=== PATIENT | female | born 1985 | race Two or more races ===

== ENCOUNTER 2018-09-04 01:45 | Observation (INO) | payer OTHER ==
[2015-11-26 14:45] VITALS: Ht 167.6 cm; Wt 91.6 kg
[2018-09-04] VITALS (11 sets, daily range): BP systolic 104–117; BP diastolic 52–93
[~2018-09-04] VITALS: Ht 167.6 cm; Wt 91.6 kg
[~2018-09-04 01:45] MED LIST: ACE3 PO; AZIT-1 PO; BUTA1CAP4 PO; IBU800 PO; IBUP800T37 PO; KET10 PO; LOR5/325 PO; MET2 PO; METH0.2T PO; MISO200T59 PO; NONE CURRENTLY; OMEP-137 PO; OMEP-218 PO; ONDA4TAB97 PO; OTC COUGH MED; OXYC-865 PO; PANT40TA65 PO; PREN-127 PO; SCOP1PAT16 TD
[2018-09-04] MEDS ORDERED: fentaNYL CITR 250 MCG/5 ML AMP ONE (08:16)
[2018-09-04] MEDS ORDERED: PROPOFOL EMUL(*) 10MG/ML 20 ML 20 ML ONE (08:17)
[2018-09-04] MEDS ORDERED: LIDOCAINE 2% IV 100 MG/5ML SYR ONE (08:17)
[2018-09-04 09:57] LABS: PLATELET COUNT, AUTOMATED 206 K/uL (150-450)
[2018-09-04] MEDS ORDERED: cefOXitin/DEX(*) 2GM/50ML PREM 50 ML IVPB ONE (10:25)
[2018-09-04] MEDS ORDERED: MIDAZOLAM 2 MG/2 ML VIAL IVP PRN (10:25)
[2018-09-04] MEDS ORDERED: LIDOCAINE/SOD BICARB 8.4% SYR ID ONE (10:25)
[2018-09-04] MEDS ORDERED: FAMOTIDINE 20 MG TAB PO ONE (10:25)
[2018-09-04] MEDS ORDERED: NORMOSOL R SOLN(*) 1000 ML BAG 1,000 ML IV PRN (10:25)
[2018-09-04] MEDS ORDERED: MANNITOL* (20%)100 GM/500ML BG 500 ML IVPB ONE (13:26)
[2018-09-04] MEDS ORDERED: ROPIVACAINE 0.2% 20 ML VIAL ONE (13:26)
[2018-09-04] MEDS ORDERED: ROCURONIUM BROM 10 MG/ML 10 ML ONE (15:06)
[2018-09-04] MEDS ORDERED: DEXAMETHASONE SOD 4 MG/ML VIAL ONE (15:08)
[2018-09-04] MEDS ORDERED: ONDANSETRON 4 MG/2 ML VIAL ONE (15:15)
[2018-09-04] MEDS ORDERED: KETOROLAC 30 MG/ML VIAL ONE (15:15)
[2018-09-04] MEDS ORDERED: KETAMINE HCL 200 MG/20 ML MDV ONE ×2 (15:23→16:20)
[2018-09-04] MEDS ORDERED: DOCU-225 PO (15:25)
[2018-09-04] MEDS ORDERED: OXYC-865 PO (15:25)
[2018-09-04] MEDS ORDERED: fentaNYL CITR 100 MCG/2 ML AMP ONE ×3 (16:21→18:27)
[2018-09-04] MEDS ORDERED: SUGAMMADEX SOD 200 MG/2 ML SDV ONE (17:15)
[2018-09-04] MEDS ORDERED: DLR(*) 1000 ML BAG 1,000 ML IV PRN (17:39)
[2018-09-04] MEDS ORDERED: ONDANSETRON 4 MG/2 ML VIAL IV PRN (17:40)
[2018-09-04] MEDS ORDERED: ACETAMINOPHEN 325 MG TAB PO PRN (17:40)
[2018-09-04] MEDS ORDERED: SIMETHICONE 80 MG CHEW CHEW PRN (17:40)
[2018-09-04] MEDS ORDERED: PROMETHAZINE 25 MG/ML 1 ML AMP IVP PRN (17:40)
[2018-09-04] MEDS ORDERED: HYDROmorphone HCL 2 MG TAB PO PRN (17:40)
[2018-09-04] MEDS ORDERED: PROMETHAZINE 25 MG/ML 1 ML AMP ONE (17:41)
--- NOTE | 2018-09-04 17:43 | Post Operative Note ---
Operative Note - INSTRUMENT ADJUSTER Operative Day Date: Sep 04, 2018 Time: 17:34 Physicians Surgeon: Aurora Garment Turner: Shabnam Arrington Anesthesia: GETA Diagnosis Pre-Op Diagnosis: Dyspareunia Pelvic pain Irregular menstruation Post-Op Diagnosis: same Procedure Findings: Procedure(s): JOYCE BS MMC Cysto Specimen Removed:(Maybe N/A): uterus, tubes Complications: none Fluids Fluids: 1100 ml Estimated Blood Loss: 100 ml Dictated Date OP Note Dictated: Sep 04, 2018 Time OP Note Dictated: 17:35 Copies to: STANFORD BANKS MD ; STANFORD BANKS MD Sep 04, 2018 17:43
--- NOTE | 2018-09-04 20:04 | OPERATIVE REPORT 1 ---
EVENT DATE: September 04, 2018 SURGEON: Marco Antonio Simon MD ANESTHESIOLOGIST: Tomasz Snow MD ANESTHESIA: General endotracheal. PREOPERATIVE DIAGNOSES 1. Dyspareunia. 2. Pelvic pain. 3. Irregular menstruation. POSTOPERATIVE DIAGNOSES 1. Dyspareunia. 2. Pelvic pain. 3. Irregular menstruation. PROCEDURES PERFORMED 1. Robotic-assisted total laparoscopic hysterectomy. 2. Bilateral salpingectomy. 3. Modified Najera culdoplasty. 4. Diagnostic cystoscopy. ESTIMATED BLOOD LOSS 100 mL FLUIDS Crystalloid 1100 mL IV. FINDINGS Normal-appearing right upper quadrant, liver, and gallbladder. Boggy-appearing uterus. Normal-appearing ovaries bilaterally. Prior tubal ligation. PROCEDURE IN DETAIL Patient was brought to the operating room with a working IV and placed in the dorsal supine position. She was placed under general endotracheal anesthesia and moved to the dorsal lithotomy position. She was prepped and draped in the usual sterile fashion. A weighted speculum was placed in the vagina, and the cervix was grasped on the anterior lip with a single-toothed tenaculum. It was carefully sounded to a depth of 8 cm. A large VCare uterine manipulator was selected, assembled, passed through the cervix, and sutured into the cervix. Bulb inflated and secured, and the other instruments were then removed. The pneumo cup was approximated against the VCare cup and secured in place. A Plascencia catheter was placed to dependent drainage. Legs were brought back to the supine position, and gloves were changed. 12 cm were marked above the target anatomy. An 8 mm incision was made after infiltrating with 0.2% Naropin. The anterior abdominal wall was elevated while a Veress needle was passed through this incision into the abdomen. A pneumoperitoneum was created to an intra-abdominal pressure of 20 mmHg. The Veress needle was then removed, and an 8 mm robotic trocar was placed under direct visualization with the scope. Once entry had been gained, additional ports were placed as follows: 8 cm left lateral to the umbilical incision, robotic port placed under direct visualization. 8 cm left lateral to this one, an assistant unit forester port was placed, an 8 mm port under direct visualization. The same procedure was followed on the contralateral side, placing two additional ports at 8 cm spacing, all with direct visualization without incident. Patient was moved to the Trendelenburg position. The pelvis was inspected with the above findings noted. The robot was brought overlying the patient, and the umbilical port was docked. The scope was placed, and the targeting procedure was performed and completed. The instruments were then attached to the robot and brought into the patient's pelvis under direct visualization. I then scrubbed out of the bedside and presented to the console for the remainder of the procedure. The hysterectomy proceeded as follows: The right fallopian tube was grasped and elevated while the vessel sealer was used to remove the tube away from its mesosalpinx connection up to the utero-ovarian ligament. This was then cauterized and transected with the vessel sealer. The round ligament was cauterized and transected as well, entering the broad ligament, which was into anterior and posterior leaflets. The anterior leaflet was dissected anteriorly, and the bladder was pushed back. This exposed the VCare cup indenting up into the vaginal tissue. Anterior colpotomy was performed at this point to locate the cup, completing the dissection of the broad ligament posteriorly. This skeletonized the uterine vasculature, which was transected using the vessel sealer on a perpendicular angle, followed by parallel bites along the lateral uterus and cervix overlying the VCare cup. Attention was then turned to the contralateral side, in likewise fashion dissecting the fallopian tube away from its mesosalpinx connection up to the utero-ovarian ligament, which was in a likewise fashion cauterized and transected. The round ligament was cauterized and transected with the vessel sealer, and the broad ligament was entered and into anterior and posterior leaflets. Anteriorly, the dissection was completed. Posteriorly, the dissection proceeded down to the uterosacral ligament. The uterine vessels were then cauterized in a perpendicular fashion, followed by parallel bites along the lateral uterus down to and overlying the cervix and the VCare cup. At this point, colpotomy incision was further extended circumferentially around the cervix, through the uterosacral ligaments on both sides, and reaching and completing on the contralateral side. The uterus was then removed through the vagina. A few spots were cauterized with bipolar cautery for hemostasis, and instruments were then changed. We proceeded to suture by suture ligating the right vaginal angle to the uterosacral ligament with an 0 Vicryl in a [id number] stitch. The same procedure was followed on the contralateral side. The remaining vaginal cuff was closed with a 2-0 V-Loc suture in a running nonlocking fashion, and the tip of the suture was buried within the tissue upon completion. The pelvis and abdomen were copiously irrigated with saline and suctioned dry. No visible bleeders. No visible complications were noted. Therefore, the pneumoperitoneum was suctioned out. All instruments were removed from the abdomen. Skin incisions were repaired with a 4-0 Monocryl simple subdermal. Diagnostic cystoscopy was performed and revealed no bladder injuries. Both ureteral orifices were observed to have a strong urine jet with no visible complications. The Plascencia catheter was left out. The vaginal cuff was inspected from the vagina side and found to be intact and without visible complication or bleeding. The procedure was then terminated. All instruments were accounted for. Sponges, laps, and needles were accounted for. She tolerated the procedure well. She was awakened from general anesthesia in stable condition and taken to Recovery. CHERYL
[2018-09-04] MEDS: DLR(*) 1000 ML BAG 1,000 ML IV PRN (20:26)
[2018-09-04] MEDS ORDERED: BELLADONNA ALK/OPIUM 60MG SUPP PR ONE (20:30)
[2018-09-04] MEDS: DOCUSATE CALCIUM 240 MG CAP PO SCH ×2 (21:00→21:32)
[2018-09-04] MEDS ORDERED: ZOLPIDEM TARTRATE 10 MG TAB PO PRN (21:00)
[2018-09-04] MEDS: KETOROLAC 30 MG/ML VIAL IVP SCH (21:32)
[2018-09-04] MEDS: FAMOTIDINE 20 MG TAB PO SCH (21:32)
[2018-09-05] VITALS: BP 105/53
[2018-09-05 01:00] VITALS: BP 96/51
[2018-09-05 03:14] VITALS: BP 98/54
[2018-09-05] MEDS: KETOROLAC 30 MG/ML VIAL IVP SCH ×2 (03:20→10:02)
[2018-09-05] MEDS: DLR(*) 1000 ML BAG 1,000 ML IV PRN (03:20)
[2018-09-05 06:15] LABS: PLATELET COUNT, AUTOMATED 196 K/uL (150-450)
[2018-09-05 07:15] VITALS: BP 103/55
--- NOTE | 2018-09-05 07:57 | OB/GYN Progress Note ---
OB Subjective Progress Notes Subjective Feeling better this AM. Pain much better and getting appetite back. Has been ambulating to BR frequently without problem. Started with bladder spasms but better now. GI: NEG Nausea : Voiding Well Pain: Mild OB Objective Physical Exam Vital Signs Date Time Temp Pulse Resp B/P (MAP) Pulse Ox O2 Delivery O2 Flow Rate FiO2 09/05/18 07:15 97.6 56 16 103/55 (71) 89 Room Air 09/05/18 01:00 2.0 Intake and Output 09/05/18 07:00 Intake Total 2561 ml Output Total 700 ml Balance 1861 ml Intake IV Total 2561 ml Output Urine Total 700 ml # Voids 4 General Appearance: Alert/Awake/No Acute Distress Neurological: No Gross deficits Cardiovascular: Normal Rhythm & Peripheral Pulses, Regular Rate and Rhythm Respiratory: No Respiratory Distress, Clear to Auscultation Abdomen: Soft, Non-Tender, Non-Distended, Bowel Sounds Present Incision: Clean, Dry, Intact, Dermabond Integumentary: Skin Intact without Lesions or Rash Psychological: Alert & Oriented X3, Appropriate Mood & Affect Result Diagram: 09/05/18 0602 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 Continue to ambulate and when feeling up to it, may discharge later today. Reviewed discharge instruction and precautions. (2) Status post robot-assisted surgical procedure (3) History of robot-assisted laparoscopic hysterectomy STANFORD BANKS MD Sep 05, 2018 07:57
[2018-09-05] MEDS ORDERED: SULF1TAB24 PO (07:59)
--- NOTE | 2018-09-05 07:59 | Short(Outpt) Discharge Summary ---
Discharge Summary Reason for Hosp/Final Diag: (1) Postoperative state Hospital Course & Plan: Routine postoperative care today. Continue to ambulate and when feeling up to it, may discharge later today. Reviewed discharge instruction and precautions. (2) Status post robot-assisted surgical procedure (3) History of robot-assisted laparoscopic hysterectomy Departure Discharge to: Home, Self Care Discharge Instructions Home Meds Active Scripts Oxycodone Hcl/Acetaminophen (PERCOCET 5-325 MG TABLET) 1 Each Tablet, 1 EACH PO Q4-6H PRN for PAIN, #20 TAB 0 Refills TAKE 1 TABLET NEEDED FOR PAIN - NO CLOSER THAN EVERY 4-6 HOURS. Prov:JEOVANNY YEUNG PA 09/04/18 Reported Medications Omeprazole Magnesium (PRILOSEC OTC) 20 Mg Tablet.dr, 0.5 TAB PO QDAY PRN for INDIGESTION, TAB 08/26/18 Discontinued Reported Medications Scopolamine (Scopolamine) 1 Mg/3 Day Patch.td.3, 1.5 MG TD ONCE 09/03/18 Follow up Referrals: [facility] [employer] - In Two Weeks @ [facility] with STANFORD BANKS MD Diet: Regular Activity: As Tolerated Copies to: STANFORD BANKS MD ; STANFORD BANKS MD Sep 05, 2018 07:59
[2018-09-05] MEDS: DOCUSATE CALCIUM 240 MG CAP PO SCH (09:08)
[2018-09-05] MEDS: FAMOTIDINE 20 MG TAB PO SCH (09:08)
[2018-09-05] MEDS ORDERED: IBUP800T37 PO ×2 (09:46→09:49)
[2018-09-05 11:30] VITALS: BP 99/48
[2018-09-05] MEDS ORDERED: IBUPROFEN 800 MG TAB PO PRN (16:00)
[2018-09-05] MEDS ORDERED: INFLUENZA VIRUS VAC 0.5ML SYR IM ONLY ONE (17:40)
== END 2018-09-05 07:58 | disposition home or self-care (01) ==
LOC: OR 01:45 → PED 19:15
PROVIDERS: ADMIT Obstetrics & Gynecology; ATTEND Obstetrics & Gynecology
DX: N92.5 Other specified irregular menstruation (principal); N94.10 Unspecified dyspareunia; R10.2 Pelvic and perineal pain
CPT/HCPCS: 36415; 58263; 84703; 85014; 85018; 85025; 88307; G0378; J0694; J1100; J1885; J2001; J2405; J2550; J2704; J2795; J3010; J3490; S2900

== ENCOUNTER 2018-11-12 00:55 | Emergency (ER) | payer OTHER ==
[2015-11-26 14:45] VITALS: BMI 40.2
[~2018-11-12 00:55] MED LIST changes: +DOCU-225 PO; +SULF1TAB24 PO
--- NOTE | 2018-11-12 01:09 | ER Report ---
History and Physical Time Seen By MD: 01:05 Hx. of Stated Complaint: chest pain from left chest to her shoulder, started 30min ago HPI/ROS CHIEF COMPLAINT: Left chest pain HISTORY OF PRESENT ILLNESS: 33-year-old female presents a ER complaining of left upper chest pain, sharp in nature, sudden onset roughly 2 h ours prior to arrival. Patient's worried about cardiac symptoms. She notes no radiation to her left arm. She does note some pain in her left shoulder. She notes change with breathing. She reports no recent illness, she denies leg swelling or calf pain. She denies GERD symptoms. Patient denies cardiac risk factors except there is a strong family history of people with cardiac problems, which is what prompted her to come in for evaluation. Allergies: Coded Allergies: tramadol (Verified Allergy, Mild, JITTERY, 08/26/18) Home Meds Active Scripts Hydrocodone Bit/Acetaminophen (HYDROCODON-ACETAMINOPHEN 5-325) 1 Each Tablet, 1 EACH PO Q4-6H PRN for PAIN, #8 TAKE ONE TABLET BY MOUTH EVERY 4-6 HOURS NEEDED FOR PAIN Prov:BERTHA SANCHEZ DO 11/12/18 Docusate Sodium (COL-RITE) 100 Mg Capsule, 100 MG PO BID for constipation for 10 Days, #20 CAPSULE Prov:JEOVANNY YEUNG 09/04/18 Reported Medications Omeprazole Magnesium (PRILOSEC OTC) 20 Mg Tablet.dr, 0.5 TAB PO QDAY PRN for INDIGESTION, TAB 08/26/18 Discontinued Reported Medications Ibuprofen (IBUPROFEN) 800 Mg Tablet, 1 TAB PO Q8H PRN for PAIN, #30 TAB 09/05/18 Discontinued Scripts Sulfamethoxazole/Trimethoprim (SULFAMETHOXAZOLE-TMP DS TABLET) 1 Each Tablet, 1 TAB PO Q12H for 3 Days, #6 TAB 0 Refills Prov:STANFORD BANKS MD 09/05/18 Oxycodone Hcl/Acetaminophen (PERCOCET 5-325 MG TABLET) 1 Each Tablet, 1 EACH PO Q4-6H PRN for PAIN, #20 TAB 0 Refills TAKE 1 TABLET NEEDED FOR PAIN - NO CLOSER THAN EVERY 4-6 HOURS. Prov:JEOVANNY YEUNG 09/04/18 Reviewed Nurses Notes: Yes Old Medical Records Reviewed: Yes Hx Smoking: Yes Smoking Status: Former Smoker Exposure to Second Hand Smoke?: No Hx Substance Use Disorder: No Hx Alcohol Use: No Constitutional Vital Sign - Last 24 Hours 11/12/18 11/12/18 11/12/18 11/12/18 00:55 00:59 01:01 01:25 Temp 97.7 Pulse ??? 66 64 Resp 17 B/P (MAP) 113/86 113/86 (95) Pulse Ox 95 O2 Delivery Room Air 11/12/18 11/12/18 11/12/18 11/12/18 01:30 01:32 01:42 01:55 Pulse 54 Resp 17 B/P (MAP) 93/52 (66) 91/73 (79) 92/68 (76) Pulse Ox 95 11/12/18 11/12/18 11/12/18 11/12/18 02:00 02:04 02:31 02:39 Pulse 66 54 Resp 10 13 B/P (MAP) 106/83 (91) 102/58 (73) Pulse Ox 89 90 11/12/18 03:09 Pulse 54 Resp 13 Pulse Ox 95 Physical Exam General Appearance: The patient is alert, has no immediate need for airway pro tection and no current signs of toxicity. Vital signs stable, afebrile, pulse ox normal HEENT: Pupils equal and round no injection. TMs normal, oropharynx with no redness or exudate, mucous. Membranes are moist Respiratory: Chest is non tender, lungs are clear to auscultation. There is chest wall tenderness of the left upper chest wall in the left sternal margin. There is some discomfort with movement of the left shoulder Cardiac: regular rate and rhythm, no murmur Gastrointestinal: Abdomen is soft and non tender, no masses, bowel sounds normal. Musculoskeletal: Neck: Neck is supple and non tender. No lymphadenopathy Extremities have full range of motion and are non tender. No edema, no calf tenderness Skin: No rashes or lesions. DIFFERENTIAL DIAGNOSIS: After history and physical exam differential diagnosis was considered for chest pain including but not limited to myocardial ischemia, pericarditis pulmonary embolus, chest wall pain, pleural inflammation and pulmonary infectious causes. Medical Decision Making Data Points Result Diagram: 11/12/182 11/12/18 0112 Laboratory Hematology Test 11/12/18 01:12 Red Blood Count 4.97 M/uL (4.17-5.56) Mean Corpuscular Volume 91.6 fL (80.0-96.0) Mean Corpuscular Hemoglobin 31.6 pg (26.0-33.0) Mean Corpuscular Hemoglobin Concent 34.5 g/dL (32.0-36.0) Red Cell Distribution Width 12.8 % (11.5-14.5) Mean Platelet Volume 9.0 fL (7.2-11.1) Neutrophils (%) (Auto) 56.3 % (39.4-72.5) Lymphocytes (%) (Auto) 33.9 % (17.6-49.6) Monocytes (%) (Auto) 6.9 % (4.1-12.4) Eosinophils (%) (Auto) 1.9 % (0.4-6.7) Basophils (%) (Auto) 1.0 % (0.3-1.4) Nucleated RBC Relative Count (auto) 0.1 /100WBC Neutrophils # (Auto) 4.1 K/uL (2.0-7.4) Lymphocytes # (Auto) 2.5 K/uL (1.3-3.6) Monocytes # (Auto) 0.5 K/uL (0.3-1.0) Eosinophils # (Auto) 0.1 K/uL (0.0-0.5) Basophils # (Auto) 0.1 K/uL (0.0-0.1) Nucleated RBC Absolute Count (auto) 0.00 K/uL D-Dimer Quantitative (PE/DVT) 0.74 ug/ml (0-0.50) Sodium Level 140 mmol/L (137-145) Potassium Level 3.5 mmol/L (3.5-5.0) Chloride Level 109 mmol/L (98-107) Carbon Dioxide Level 27 mmol/L (22-31) Blood Urea Nitrogen 14 mg/dl (7-18) Creatinine 0.80 mg/dl (0.52-1.04) Glomerular Filtration Rate Calc > 60.0 Random Glucose 95 mg/dl (75-110) Calcium Level 9.6 mg/dl (8.4-10.2) Total Bilirubin 0.3 mg/dl (0.2-1.3) Aspartate Amino Transf (AST/SGOT) 22 U/L (0-35) Alanine Aminotransferase (ALT/SGPT) 33 U/L (0-56) Alkaline Phosphatase 91 U/L (0-126) Troponin I < 0.012 ng/ml Total Protein 7.3 g/dl (6.3-8.2) Albumin 4.2 g/dl (3.5-5.0) Chemistry Test 11/12/18 01:12 White Blood Count 7.3 k/uL (4.5-11.0) Red Blood Count 4.97 M/uL (4.17-5.56) Hemoglobin 15.7 g/dL (12.0-16.0) Hematocrit 45.5 % (34.0-47.0) Mean Corpuscular Volume 91.6 fL (80.0-96.0) Mean Corpuscular Hemoglobin 31.6 pg (26.0-33.0) Mean Corpuscular Hemoglobin Concent 34.5 g/dL (32.0-36.0) Red Cell Distribution Width 12.8 % (11.5-14.5) Platelet Count 193 K/uL (150-450) Mean Platelet Volume 9.0 fL (7.2-11.1) Neutrophils (%) (Auto) 56.3 % (39.4-72.5) Lymphocytes (%) (Auto) 33.9 % (17.6-49.6) Monocytes (%) (Auto) 6.9 % (4.1-12.4) Eosinophils (%) (Auto) 1.9 % (0.4-6.7) Basophils (%) (Auto) 1.0 % (0.3-1.4) Nucleated RBC Relative Count (auto) 0.1 /100WBC Neutrophils # (Auto) 4.1 K/uL (2.0-7.4) Lymphocytes # (Auto) 2.5 K/uL (1.3-3.6) Monocytes # (Auto) 0.5 K/uL (0.3-1.0) Eosinophils # (Auto) 0.1 K/uL (0.0-0.5) Basophils # (Auto) 0.1 K/uL (0.0-0.1) Nucleated RBC Absolute Count (auto) 0.00 K/uL D-Dimer Quantitative (PE/DVT) 0.74 ug/ml (0-0.50) Glomerular Filtration Rate Calc > 60.0 Calcium Level 9.6 mg/dl (8.4-10.2) Total Bilirubin 0.3 mg/dl (0.2-1.3) Aspartate Amino Transf (AST/SGOT) 22 U/L (0-35) Alanine Aminotransferase (ALT/SGPT) 33 U/L (0-56) Alkaline Phosphatase 91 U/L (0-126) Troponin I < 0.012 ng/ml Total Protein 7.3 g/dl (6.3-8.2) Albumin 4.2 g/dl (3.5-5.0) Coagulation Test 11/12/18 01:12 D-Dimer Quantitative (PE/DVT) 0.74 ug/ml EKG/Imaging EKG Interpretation 12 lead EK Rhythm: normal sinus rhythm [place]: normal QRS: normal,? Anterior infarction of indeterminate age ST segments: normal Imaging X-ray: Two-view chest x-ray was obtained. I viewed the images myself on the PACS system. My interpretation of the images is: Infiltrate, no effusion, normal mediastinum. The radiologist interpretation had no clinically significant variation from this interpretation. ED Course/Re-evaluation Clinical Indication for ER IV: IV Access ED Course Patient was admitted to an examination room. H&P was done. The differential diagnoses was considered. Patient with severe left upper chest pain. EKG is unremarkable. Chest x-ray is performed. Patient's medicated with Toradol 30 mg IV. Her d-dimer returns elevated suggesting potential pulmonary embolism. A CTA pulmonary angiogram is ordered. The CT scan is negative for pulmonary embolism. The results are discussed with the patient. She is advised to conservative treatment plan of ibuprofen 600 mg 3 times daily. She is discharged home with a limited supply of Lortab for temporary pain relief. She is advised to follow-up with her primary care if unimproved in 3-5 days. Decision to Disposition Date: Nov 12, 2018 Decision to Disposition Time: 01:40 Depart Departure Latest Vital Signs Vital Signs Date Time Temp Pulse Resp B/P (MAP) Pulse Ox O2 Delivery O2 Flow Rate FiO2 11/12/18 03:09 54 13 95 11/12/18 02:31 102/58 (73) 11/12/18 00:59 97.7 Room Air Impression: Primary Impression: Chest pain Additional Impression: Left shoulder pain Condition: Improved Disposition: HOME OR SELF-CARE New Scripts Hydrocodone Bit/Acetaminophen (HYDROCODON-ACETAMINOPHEN 5-325) 1 Each Tablet 1 EACH PO Q4-6H PRN for PAIN, #8 TAKE ONE TABLET BY MOUTH EVERY 4-6 HOURS NEEDED FOR PAIN Prov: BERTHA SANCHEZ DO 11/12/18 Patient Instructions: Chest Wall Pain (ED) Additional Instructions: Take ibuprofen 200 mg 3 tablets 3 times a day with food for 3-5 days Apply heating pad to the affected area Follow-up with primary care if unimproved in 3-5 days Problem Qualifiers Primary Impression: Chest pain Chest pain type: unspecified Qualified Codes: R07.9 - Chest pain, unspecified Additional Impression: Left shoulder pain Chronicity: acute Qualified Codes: M25.512 - Pain in left shoulder BERTHA SANCHEZ DO Nov 12, 2018 01:09
[2018-11-12] MEDS ORDERED: KETOROLAC 30 MG/ML VIAL IVP ONE (01:15)
[2018-11-12] MEDS ORDERED: ONDANSETRON 4 MG/2 ML VIAL IVP ONE (01:15)
--- NOTE | 2018-11-12 01:18 | EKG ---
FACILITY: [facility] [place] PATIENT NAME: YAIR HARRIS : [id number] MR: [id number] V: [id number] EXAM DATE: ORDERING PHYSICIAN: BERTHA SANCHEZ TECHNOLOGIST: ELSIE Beard Reason : CARDIAC Blood Pressure : / mmHG Vent. Rate : 054 BPM Atrial Rate : 054 BPM P-R Int : 144 ms QRS Dur : 090 ms QT Int : 418 ms P-R-T Axes : 052 052 031 degrees QTc Int : 396 ms Sinus bradycardia Anterior infarct , age undetermined Abnormal ECG No previous ECGs available Confirmed by DIOGENES TOWNSEND ([id number]) on 11/12/2018 6:28:11 AM Referred By: Confirmed By:DIOGENES TOWNSEND
[2018-11-12 01:25] LABS: PLATELET COUNT, AUTOMATED 193 K/uL (150-450)
--- NOTE | 2018-11-12 02:01 | RADIOLOGY IMAGING REPORT ---
[place] [facility] [place] NAME: Adrianne Kee : 1985 MR: [id number] V: [id number] EXAM DATE: ORDERING PHYSICIAN: BERTHA SANCHEZ TECHNOLOGIST: Location: [facility] [place] Patient: Adrianne Kee : 1985 Visit/Account:[id number] Date of Sevice: 11/12/2018 TWO VIEW CHEST 11/12/2018 1:13 AM. INDICATION: Acute chest pain. COMPARISON: None. FINDINGS: Lungs are well-expanded. The lungs are clear. No pneumothorax or pleural effusion. Pulmo nary vasculature is unremarkable. Heart size is normal. Cholecystectomy clips. IMPRESSION: No acute abnormality. Report Dictated By: Shmuel Arizmendi MD at 11/12/2018 1:55 AM Report E-Signed By: Shmuel Arizmendi MD at 11/12/2018 1:56 AM WSN:[id number]
[2018-11-12] MEDS ORDERED: NS(*) 0.9% 50 ML BAG 50 ML ONE (02:07)
[2018-11-12] MEDS ORDERED: IOPAMIDOL 61% 100 ML INFUS BTL 100 ML ONE (02:08)
[2018-11-12 02:31] VITALS: BP 102/58
--- NOTE | 2018-11-12 02:38 | RADIOLOGY IMAGING REPORT ---
FACILITY: [facility] - [place] PATIENT NAME: Adrianne Kee : 1985 MR: [id number] V: [id number] EXAM DATE: ORDERING PHYSICIAN: BERTHA SANCHEZ TECHNOLOGIST: Location: [facility] Patient: Adrianne Kee : 1985 Visit/Account:[id number] Date of Sevice: 11/12/2018 CT PE DATE: 11/12/2018 2:23 AM INDICATION: Left shoulder an chest pain, elevated d-dimer. COMPARISON: Same-day chest radiographs. TECHNIQUE: Axial CT angiogram was obtained through the chest with intravenous contrast. Sagittal an d coronal MPR and MIP coronal reformations were also generated. 100 mL isovue 300. One of the follo wing dose optimization techniques was utilized in the performance of this exam: Automated exposure co ntrol; adjustment of the mA and/or kV according to the patient's size; or use of an iterative recons truction technique. Specific details can be referenced in the facility's radiology CT exam operation al policy. FINDINGS: Thyroid / Thoracic Inlet: No visualized thyroid nodule or supraclavicular lymphadenopathy. Pulmonary Arteries: Normal. Heart and Aorta: Normal-size heart with no pericardial effusion. Nonaneurysmal thoracic aorta. Mediastinum and Kristine: No lymphadenopathy. Residual thymic tissue. Lungs and Pleura: No pleural effusion or pneumothorax. No suspicious consolidation. Calcified gran uloma in the right lower lobe. Breast and Axilla: No axillary lymphadenopathy. Upper Abdomen: No visualized acute abnormality. Bones and Soft Tissues: No suspicious osseous or soft tissue abnormality. IMPRESSION: No pulmonary embolism or other acute abnormality. Report Dictated By: Shmuel Arizmendi MD at 11/12/2018 2:23 AM Report E-Signed By: Shmuel Arizmendi MD at 11/12/2018 2:35 AM WSN:[id number]
[2018-11-12] MEDS ORDERED: LOR5/325 PO (03:13)
[2018-11-12] MEDS ORDERED: ACET/HYDROC 5/325MG TH ER ONLY 2 TAB/BOTTLE PO ONE (03:20)
== END 2018-11-12 03:34 | disposition home or self-care (01) ==
LOC: ER 01:29
DX: R07.9 Chest pain, unspecified (principal); M25.512 Pain in left shoulder; R00.1 Bradycardia, unspecified
CPT/HCPCS: 71046; 71275; 84484; 85025; 85379; 93005; 96374; 96375; 99285; J1885; J2405; J7050; Q9967; 82040; 82247; 82310; 82374; 82435; 82565; 82947; 84075; 84132; 84155; 84295; 84450; 84460; 84520

== ENCOUNTER → 2018-11-13 | Outpatient (CLI) | payer OTHER ==
[2015-11-26 14:45] VITALS: BMI 40.2
--- NOTE | 2018-11-13 10:32 | EKG ---
FACILITY: [facility] - [place] PATIENT NAME: YAIR HARRIS : [id number] MR: [id number] V: [id number] EXAM DATE: ORDERING PHYSICIAN: CRISTOBAL REICH TECHNOLOGIST: Test Reason : CP Blood Pressure : / mmHG Vent. Rate : 047 BPM Atrial Rate : 047 BPM P-R Int : 142 ms QRS Dur : 082 ms QT Int : 436 ms P-R-T Axes : 018 051 023 degrees QTc Int : 385 ms Marked sinus bradycardia No ST-T abnormalities When compared with ECG of 12-NOV-2018 01:08, Evidence for anterior infarct is no longer present Confirmed by CLAUDIA HANSON ([id number]) on 11/13/2018 4:29:04 PM Referred By: Confirmed By:CLAUDIA HANSON
== END ==
LOC: LAB 10:12
PROVIDERS: ATTEND Nurse Practitioner Family
DX: R00.1 Bradycardia, unspecified (principal); R07.9 Chest pain, unspecified; R79.89 Other specified abnormal findings of blood chemistry
CPT/HCPCS: 36415; 84484; 85379; 93005

== ENCOUNTER → 2018-11-27 | Outpatient (CLI) | payer OTHER ==
[2015-11-26 14:45] VITALS: BMI 40.2
--- NOTE | 2018-11-27 17:15 | RT STRESS TEST REPORT ---
FACILITY: [facility] PATIENT NAME: YAIR HARRIS : [id number] MR: [id number] V: [id number] EXAM DATE: ORDERING PHYSICIAN: MAXWELL COHEN TECHNOLOGIST: Marcus Acquisition Time: 2018-11-27 14:04:16 Total Exercise Time: 00:07:15 Test Indications: CHEST PAIN Medications: SEE NUCLEAR MEDICINE Protocol: MILTON 2 Max HR: 166 BPM 88% of Pred: 187 BPM Max BP: 147/082 mmHG Max Work Load: 8.9 METS Patient experienced significant dyspnea, but no chest pain. EKGs showed some flattening of T waves an d slight ST depression in the inferolateral leads. A few PVCs were also noted. Recovery was uneventful. IMPRESSION: Decreased exercise tolerance. Suspect low probability of ischemia. Await Myoview images. Confirmed by CARLOS EDUARDO SAVAGE ([id number]) on 11/27/2018 5:14:09 PM Referred By: Overread By: CARLOS EDUARDO SAVAGE
--- NOTE | 2018-11-28 09:03 | RADIOLOGY IMAGING REPORT ---
FACILITY: [facility] PATIENT NAME: Adrianne Kee : 1985 MR: [id number] V: [id number] EXAM DATE: ORDERING PHYSICIAN: MAXWELL COHEN TECHNOLOGIST: Location: [facility] - [place] Patient: Adrianne Kee : 1985 Visit/Account:[id number] Date of Sevice: 11/27/2018 EXAMINATION: Single Isotope SPECT Imaging with Exercise and Gated SPECT Imaging DATE OF EXAMINATION: 11/27/2018 DATE OF INTERPRETATION: 11/28/2018 REQUESTING PHYSICIAN: MAXWELL COHEN INDICATION: The patient is a 33-year-old female evaluated for chest pain. PROCEDURE: After informed consent the patient received an intravenous injection of 11.9 mCi of Tc-9 9m sestamibi followed at the appropriate time interval by rest imaging. The patient then exercised a ccording to the standard Jerrod protocol for 7:15 minutes achieving 8 METS. Resting heart rate was 51 bpm with a peak heart rate of 166 bpm which is 88 % of maximal predicted heart rate for age. Blood pressure at rest was 105 / 72; blood pressure during exercise was 147 / 82. There was no chest pain during exercise. Exercise was discontinued because of fatigue. Baseline EKG demonstrates normal si nus rhythm, no ST or T-wave abnormalities. There were no EKG changes of ischemia at peak exercise. Approximately one minute and 30 seconds prior to the termination of exercise, the patient received an intravenous injection of 30.0 mCi of Tc-99m sestamibi followed by stress imaging. RAW DATA: Examination of the summed raw data revealed a good quality study. MYOCARDIAL PERFUSION: The tomographic images demonstrate mild anteroseptal defect at rest which impr oves with stress and result by prone imaging suggesting breast attenuation artifact. No other evidenc e of reversible ischemia or prior infarct.. GATED IMAGES: The gated images demonstrate normal wall motion, hyperdynamic ejection fraction of 76% IMPRESSION: 1. Good quality study 2. Normal myocardial perfusion scan. 3. Hyperdynamic LV systolic function; LVEF 76%. 4. Based on the results of this exam, the patient appears to be at low risk for future cardiovascular events. Report Dictated By: Cody Dutta at 11/28/2018 8:54 AM Report E-Signed By: Cody Dutta at 11/28/2018 8:57 AM WSN:[id number]
== END ==
LOC: NUC 00:52
PROVIDERS: ATTEND Internal Medicine Cardiovascular Disease
DX: R07.2 Precordial pain (principal); R06.00 Dyspnea, unspecified
CPT/HCPCS: 78452; 93017; A9500